=== PATIENT | female | born 1970 | race Asian ===

== ENCOUNTER 2017-05-15 11:26 | Emergency (ER) | payer OTHER ==
[~2017-05-15] VITALS: Ht 160 cm; Wt 67.1 kg
[~2017-05-15 11:26] MED LIST: HYDR500 PO
[2017-05-15 12:07] LABS: PROTHROMBIN TIME 10.8 SEC (9.4-11.6)
[2017-05-15 12:08] LABS: BASOPHILS % (AUTO) 1.4 % (0.0-2.0); EOSINOPHILS % (AUTO) 1.3 % (1.0-6.0); HEMATOCRIT 36.6 % (36-46); HEMOGLOBIN 11.8 g/dL (12.0-16.0); LYMPHOCYTES # (AUTO) 1.2 K/uL (1.0-4.8); LYMPHOCYTES % (AUTO) 15.4 % (22.0-44.0); MEAN CORPUSCULAR HEMOGLOBIN 27.8 pg (26.0-34.0); MEAN CORPUSCULAR HGB CONC 32.4 G/dL (31.0-37.0); MEAN CORPUSCULAR VOLUME 86 fL (80-100); MONOCYTES # (AUTO) 0.4 K/uL (0.1-1.0); MONOCYTES % (AUTO) 4.7 % (2.0-9.0); NEUTROPHILS % (AUTO) 77.2 % (40.0-70.0); RED BLOOD CELL COUNT(AUTO) 4.26 MIL/uL (4.00-5.20); RED CELL DISTRIBUTION WIDTH 18.2 % (11.5-14.5); WHITE BLOOD COUNT (AUTO) 7.8 K/uL (4.5-11.0)
[2017-05-15 12:13] LABS: ANION GAP 7 mmol/L (8-16); CALCIUM, TOTAL 9.1 mg/dL (8.8-10.5); CARBON DIOXIDE 30 mmol/L (22-29); CHLORIDE 103 mmol/L (98-107); CREATININE 0.67 mg/dL (0.60-1.30); GLOMERULAR FILTR. RATE CALC > 60 mL/min (>60); SODIUM SERUM 140 mmol/L (136-145); UREA NITROGEN, BLOOD 9 mg/dL (7-18)
[2017-05-15 12:17] LABS: GLUCOSE,POINT OF CARE 88 MG/DL (70-110)
[2017-05-15 12:28] LABS: PLATELET COUNT (AUTO) 1179 K/uL (150-450)
[2017-05-15 12:38] LABS: ALANINE AMINOTRANSFERASE 31 U/L (12-78); ALBUMIN 3.6 g/dL (3.4-5.0); ASPARTATE AMINOTRANSFERASE 27 U/L (15-37); BILIRUBIN,TOTAL 0.3 mg/dL (0.1-1.0); CREATINE KINASE MB 0.6 ng/mL (0-5); CREATINE KINASE, TOTAL 178 U/L (26-192); TOTAL PROTEIN, SERUM 7.8 g/dL (6.4-8.2)
[2017-05-15] MEDS ORDERED: ALTEPLASE 6.1 MG in WATER FOR INJECTION,STERILE 6.1 ML IV ONE (12:45)
[2017-05-15] MEDS ORDERED: ALTEPLASE PER STROKE PROTOCOL CLINICAL ONE ×2 (12:45)
[2017-05-15] MEDS ORDERED: ALTEPLASE 54.5 MG in WATER FOR INJECTION,STERILE 54.5 ML IV ONE (12:45)
[2017-05-15 14:25] VITALS: BP 112/79
== END 2017-05-15 14:37 | disposition short-term general hospital (02) ==
LOC: EMS 11:27
DX: I63.9 Cerebral infarction, unspecified (principal); Z88.6 Allergy status to analgesic agent
CPT/HCPCS: 37195; 51702; 70450; 70496; 71010; 80053; 81025; 82550; 82553; 82962; 84484; 85025; 85610; 85730; 93005; 99291; J2997